=== PATIENT | female | born 2000 | race Caucasian/White ===

== ENCOUNTER 2022-01-26 22:26 | Emergency (ER) | payer OTHER, SELFPAY ==
[2022-01-26 22:35] VITALS: BP 126/76; PULSE 85; RESP 16; TEMP 36.7; O2SAT 100; BMI 25.7
--- NOTE | 2022-01-26 22:42 | XRR_ITS ---
PROCEDURE INFORMATION: Exam: XR Left Hand Exam date and time: 01/26/2022 11:39 PM Age: 21 years old Clinical indication: Injury or trauma; Fall; Blunt trauma (contusions or hematomas); Injury date: 01-26-22; Injury details: Fell and tripped [place], pain in left hand; Additional info: Fall/hand injury TECHNIQUE: Imaging protocol: Radiologic exam of the Left hand. Views: 3 or more views. COMPARISON: No relevant prior studies available. 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 Horizontal fracture through the proximal shaft of ring finger proximal phalanx with radial angulation of the distal fracture fragment. Soft tissues: Normal. XR/XR hand LT min 3V* [id number] IMPRESSION: Horizontal fracture through the proximal shaft of ring finger proximal phalanx with radial angulation of the distal fracture fragment.
[2022-01-27 00:51] VITALS: RESP 15
[2022-01-27] MEDS: oxyCODONE-APAP 5-325 mg Tablet 2 TAB PO (00:51)
[2022-01-27 01:17] VITALS: PULSE 75; RESP 16; O2SAT 99
--- NOTE | 2022-01-27 22:39 | ED_ITS ---
HPI - Extremity Problem General: Chief complaint: Extremity Injury, Upper Stated complaint: Left hand Injury Time Seen by Provider: 01/26/22 23:37 Source: patient History of Present Illness: 21-year-old female who was running, and fell on an outstretched hand. She landed on her hand, the left hand, injuring it. She notes that her fourth finger was crooked but that she pulled it back straight . She continues to complain of pain to the fourth and fifth digit. It radiates proximally to her wrist. MD Complaint: extremity pain Onset (ago): hour(s) Pain Consistency: constant Location: left and upper extremity Relieving factors: immobilization Exacerbating factors: range of motion Associated symptoms: Deny fever(s) Review of Systems Const: Denies: fever(s) GI: Denies: abdominal pain Neuro: Denies: headache(s) or numbness in extremities [facility] Female Reproductive History: Date of last menstrual period: 01/10/22 Physical Exam HENMT: COMMON NORMALS: normocephalic HEAD & SCALP: normocephalic FACE & SINUS: normal facial exam and face symmetric Eye: COMMON NORMALS: Equal, round and reactive pupils present and EOMs intact bilaterally PUPIL: Yes Equal, round and reactive pupils present Chest: CHEST: Yes Symmetrical chest wall rise Resp: COMMON NORMALS: normal respiratory effort and No retractions Cardio: COMMON NORMALS: regular rate, regular rhythm and Peripheral pulses 2+ throughout RATE: regular rate RHYTHM: regular rhythm PERIPHERAL PULSES: Peripheral pulses 2+ throughout Extremity: NARRATIVE EXTREMITY EXAM: Exam the left hand reveals slight deformity of the fourth and fifth fingers. No hand deformity. There is no metacarpal tenderness. There is significant te nderness over the proximal phalanges of digits 4 and 5. Course Vital Signs: Vital signs: Vital Signs Temperature 98.1 F 01/26/22 22:35 Pulse Rate 75 01/27/22 01:17 Respiratory Rate 16 01/27/22 01:17 Blood Pressure 126/76 01/26/22 22:35 Pulse Oximetry 99 01/27/22 01:17 Oxygen Delivery Me thod 01/26/22 22:35 MDM - Extremity (Nontraumatic) Medical Decision Making [id number] female with a hand injury. She has fractures of the bases of the phalanges. Most significantly, there is angulation of the ring finger fracture. This is concerning. We will have her follow-up with orthopedics for this. She is placed in an ulnar gutter splint immobilizing the fingers as well. She will stay in the splint until evaluation by orthopedics. Lab Data Radiology Impressions Hand X-Ray 01/26/22 22:42 IMPRESSION: Horizontal fracture through the proximal shaft of ring finger proximal phalanx with radial angulation of the distal fracture fragment. Discharge Plan Discharge Patient Disposition: Home Clinical Impression: Fracture of proximal phalanx of digit of left hand Condition: Stable Prescriptions: New hydrocodone-acetaminophen 5-325 mg tablet 1 tab PO Q8H PRN (Reason: pain) Qty: 7 0RF Discharge Orders: Discharge ED (Routine); Ordered 01/27/22 Ordered By: Robert Ferrer Referrals: Jack Mercer DO [Physician] - 4-7 days Patient Instructions: Finger Fracture (ED), Opioid Safety Activity Restrictions/Additional Instructions: Call orthopedics on Friday for a follow-up appointment this coming week. Stay in splint until you are seen. Return for any problems. Coding Level of Care Code ED Customer Experience Analyst for [employer] [facility] Exam Detailed
== END 2022-01-27 01:18 | disposition home or self-care (01) ==
PROVIDERS: Emergency Provider Emergency Medicine
DX: S62.615A Displaced fracture of proximal phalanx of left ring finger, initial encounter for closed fracture (principal); W18.39XA Other fall on same level, initial encounter
CPT/HCPCS: 29125; 73130; 99283